=== PATIENT | male | born 2000 | race Two or more races ===

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

== ENCOUNTER 2023-01-15 16:23 | Emergency (ER) | payer OTHER ==
[2023-01-15 16:30] VITALS: BP 150/86; PULSE 109; RESP 19; TEMP 98.4; BMI 24.3
[2023-01-15] MEDS ORDERED: ACETAMINOPHEN 500 MG TABLET (FP) PO ONE (18:07)
[2023-01-15 18:41] LABS: BASO % 0.4 % (0-2.0); EOS % 2.2 % (0-4.5); HEMATOCRIT 48.7 % (35.4-49); LYMPH % 15.5 % (8-40); MCH 30.5 pg (25.7-33.7); MCHC 34.8 g/dl (32.0-35.9); MEAN CELL VOLUME 87.6 fl (80-96); MEAN PLT VOLUME 8.1 fl (7.5-11.1); MONO % 5.9 % (3.8-10.2); PLATELET COUNT 254 10^3/uL (134-434); RBC 5.56 M/mm3 (4.00-5.60); RDW 12.9 % (11.9-15.9); WHITE BLOOD COUNT 9.2 K/mm3 (4.0-10.0)
[2023-01-15 18:51] LABS: INR 1.15 (0.83-1.09); PROTHROMBIN TIME (PATIENT) 13.3 SEC (9.7-13.0)
[2023-01-15] MEDS ORDERED: ACETAMINOPHEN 500 MG TABLET (FP) ONE (18:52)
[2023-01-15 18:54] LABS: ACTIVATED PTT 33.4 SECONDS (25.2-36.5)
[2023-01-15 18:58] LABS: POTASSIUM 3.7 mmol/L (3.5-5.1)
[2023-01-15 19:00] LABS: BLOOD UREA NITROGEN 15.6 mg/dL (7-18); CALCIUM 9.3 mg/dL (8.5-10.1)
[2023-01-15 19:01] LABS: ALBUMIN 4.6 g/dl (3.4-5.0)
[2023-01-15 19:03] LABS: CREATININE 1.1 mg/dL (0.55-1.3)
[2023-01-15 19:05] LABS: BILIRUBIN,TOTAL 1.3 mg/dL (0.2-1); TOT PROT 8.1 g/dl (6.4-8.2)
== END 2023-01-15 19:32 | disposition home or self-care (01) ==
LOC: JER 16:23
DX: K62.5 Hemorrhage of anus and rectum (principal); R10.12 Left upper quadrant pain; R11.0 Nausea
CPT/HCPCS: 36415; 80053; 82272; 85025; 85610; 85730; 86850; 86900; 86901; 99283-25